=== PATIENT | male | born 1945 | race Caucasian/White ===

== ENCOUNTER 2016-11-17 14:23 | Outpatient (CLI) | payer OTHER | END 2016-11-17 23:00 | disposition home or self-care (01) | LOC: LAB SRH 14:23 | DX: R73.09 Other abnormal glucose (principal); R53.83 Other fatigue; M51.9 Unspecified thoracic, thoracolumbar and lumbosacral intervertebral disc disorder; E78.5 Hyperlipidemia, unspecified | CPT/HCPCS: 90074; 90100; 91286; 91504; 92690; 93140; 95059 ==